=== PATIENT | male | born 1990 | race Hispanic/Latino ===

== ENCOUNTER 2021-06-04 17:54 | Emergency (ER) | payer OTHER ==
[~2021-06-04] VITALS: Ht 170.2 cm; Wt 77.1 kg
[2021-06-04] MEDS ORDERED: LEVETIRACETAM 1,000 MG in 0.9%NACL 100ML 100 ML IV SCH (18:39)
[2021-06-04] MEDS ORDERED: 0.9%NACL 1000ML 1,000 ML IV ONE (19:00)
[2021-06-04 19:35] LABS: BASOPHILS % (AUTO) 0.2 % (0.0-5.0); EOSINOPHILS % (AUTO) 1.1 % (0.0-8.0); HEMATOCRIT 43.1 % (42-54); LYMPHOCYTES % (AUTO) 14.1 % (21.0-51.0); MEAN CORPUSCULAR HEMOGLOBIN 30.1 pg (27.0-33.0); MEAN CORPUSCULAR HGB CONC 34.3 g/dL (32.0-36.0); MEAN CORPUSCULAR VOLUME 87.8 fL (79-99); MONOCYTES % (AUTO) 6.9 % (3.0-13.0); NEUTROPHILS % (AUTO) 77.2 % (40.0-77.0); PLATELET COUNT (AUTO) 235 K/uL (130-400); RED BLOOD CELL COUNT(AUTO) 4.91 MIL/uL (4.50-6.20); RED CELL DISTRIBUTION WIDTH 12.8 % (11.0-15.5); WHITE BLOOD COUNT (AUTO) 12.3 K/uL (4.8-10.8)
[2021-06-04] MEDS ORDERED: LEVETIRACETAM 500 MG/5 ML SD VIAL IV ONE ×2 (19:38→21:54)
[2021-06-04 19:45] LABS: CREATININE 1.2 mg/dL (0.5-1.5); POTASSIUM 4.3 mmol/L (3.5-5.1)
[2021-06-04 19:52] LABS: ALBUMIN 4.2 g/dL (3.5-5.0); BILIRUBIN,TOTAL 0.2 mg/dL (0.2-1.0); TOTAL PROTEIN, SERUM 7.7 g/dL (6.0-8.3)
[2021-06-04] MEDS ORDERED: COMPOUND IV MISC 1 EACH IVSOLN MISC PRN (21:00)
[2021-06-04] MEDS ORDERED: LEVE750T4 PO (21:09)
[2021-06-04 21:43] LABS: AMPHET/METH SCREEN,URINE NEGATIVE (NEGATIVE); BARBITURATE SCREEN, URINE NEGATIVE (NEGATIVE); BENZODIAZEPINES SCREEN,URINE NEGATIVE (NEGATIVE); CANNABINOID SCREEN,URINE NEGATIVE (NEGATIVE); COCAINE SCREEN,URINE NEGATIVE (NEGATIVE); OPIATE SCREEN,URINE NEGATIVE (NEGATIVE); PHENCYCLIDINE SCREEN,URINE NEGATIVE (NEGATIVE)
[2021-06-04] MEDS ORDERED: LEVETIRACETAM 1,000 MG in 0.9%NACL 100ML 100 ML IV ONE (22:00)
[2021-06-04 22:38] VITALS: BP 94/56
== END 2021-06-04 22:29 | disposition home or self-care (01) ==
LOC: EDH 17:54
DX: R25.9 Unspecified abnormal involuntary movements (principal); R55 Syncope and collapse; T50.B95A Adverse effect of other viral vaccines, initial encounter; Z79.899 Other long term (current) drug therapy; Y92.89 Other specified places as the place of occurrence of the external cause
CPT/HCPCS: 36415; 70450; 80053; 80305; 84484; 85025; 93005; 96365; 96366; 99285; J1953 ×4; J7030